=== PATIENT | male | born 1995 | race Caucasian/White ===

== ENCOUNTER 2018-03-18 13:08 | Emergency (ER) | payer SELFPAY ==
[~2018-03-18] VITALS: Ht 182.9 cm; Wt 72.6 kg
--- NOTE | 2018-03-18 13:55 | NUR ---
PT SLEEPING ON [facility], SIDERAILS UP.
[2018-03-18 14:18] LABS: BASOPHILS # (AUTO) 0.1 K/uL (0.0-8.0); BASOPHILS % (AUTO) 0.8 % (0.0-2.0); EOSINOPHILS # (AUTO) 0.1 K/uL (0.0-0.7); EOSINOPHILS % (AUTO) 0.7 % (0.0-7.0); HEMATOCRIT 47.3 % (36.7-47.1); HEMOGLOBIN 15.8 g/dL (12.5-16.3); LYMPHOCYTES # (AUTO) 1.8 K/uL (20.0-40.0); LYMPHOCYTES % (AUTO) 26.1 % (20.5-51.5); MEAN CORPUSCULAR HEMOGLOBIN 30.3 uug (23.8-33.4); MEAN CORPUSCULAR HGB CONC 33 g/dL (32.5-36.3); MEAN CORPUSCULAR VOLUME 90.7 fL (73.0-96.2); MONOCYTES # (AUTO) 0.4 K/uL (2.0-10.0); NEUTROPHILS # (AUTO) 4.7 K/uL (1.8-8.9); NEUTROPHILS % (AUTO) 66.4 % (38.5-71.5); PLATELET COUNT (AUTO) 126 K/uL (152-348); RED BLOOD CELL COUNT(AUTO) 5.21 MIL/uL (4.06-5.63)
[2018-03-18 14:28] LABS: BILIRUBIN,DIRECT 0.1 mg/dL (0.0-0.2); BILIRUBIN,TOTAL 0.2 mg/dL (0.2-1.0); CREATININE 0.8 mg/dL (0.6-1.3); POTASSIUM 4.1 mmol/L (3.5-5.1); TOTAL PROTEIN, SERUM 6.8 g/dL (6.4-8.2)
--- NOTE | 2018-03-18 15:23 | NUR ---
UNABLE TO AROSE PATIENT FOR URINE SAMPLE , TOMMY ROLDAN AWARE.
--- NOTE | 2018-03-18 16:58 | NUR ---
PT REFUSED TO STAY, ELOPED, AMBULATED W/O DIFF. AWARE.
== END 2018-03-18 17:01 | disposition left against medical advice (07) ==
LOC: ER 13:08
DX: F10.129 Alcohol abuse with intoxication, unspecified (principal)
CPT/HCPCS: 36415; 76770; 80048; 80076; 85025; 99285; A4663; G0480

== ENCOUNTER 2018-08-08 21:45 | Emergency (ER) | payer MEDICAID ==
[~2018-08-08] VITALS: Ht 185.4 cm; Wt 84.8 kg
--- NOTE | 2018-08-08 22:21 | NUR ---
PT A/OX4, PRESENTS TO THE ER C/O HTN. PT IS ESCORTED BY STAFF MEMBER FROM [facility]. PT IS HYPERTENSIVE W/ TACHYCARDIA, PRESENTS W/ BILATERAL HAND TREMORS. PT DENIES PAIN, C/P, SOB, N/V/D, DIZZINESS, HEADACHE.
--- NOTE | 2018-08-08 22:38 | NUR ---
HILARIA HIDALGO AT BEDSIDE FOR MSE.
[2018-08-08] MEDS ORDERED: CLONIDINE HCL 0.2 MG TABLET ONE (22:54)
--- NOTE | 2018-08-08 22:56 | NUR ---
WINDOW DISPLAY DESIGNER AT BEDSIDE.
[2018-08-08] MEDS ORDERED: CLONIDINE HCL 0.2 MG TABLET PO ONE (23:00)
[2018-08-08 23:02] LABS: BASOPHILS # (AUTO) 0.1 K/uL (0.0-8.0); BASOPHILS % (AUTO) 0.8 % (0.0-2.0); EOSINOPHILS % (AUTO) 0.5 % (0.0-7.0); HEMATOCRIT 48.6 % (36.7-47.1); HEMOGLOBIN 16.7 g/dL (12.5-16.3); LYMPHOCYTES # (AUTO) 2.3 K/uL (20.0-40.0); LYMPHOCYTES % (AUTO) 31.5 % (20.5-51.5); MEAN CORPUSCULAR HEMOGLOBIN 30.7 uug (23.8-33.4); MEAN CORPUSCULAR HGB CONC 34 g/dL (32.5-36.3); MEAN CORPUSCULAR VOLUME 89.2 fL (73.0-96.2); MONOCYTES # (AUTO) 0.5 K/uL (2.0-10.0); MONOCYTES % (AUTO) 6.6 % (0.0-11.0); NEUTROPHILS # (AUTO) 4.4 K/uL (1.8-8.9); NEUTROPHILS % (AUTO) 60.6 % (38.5-71.5); PLATELET COUNT (AUTO) 133 K/uL (152-348); RED BLOOD CELL COUNT(AUTO) 5.45 MIL/uL (4.06-5.63); WHITE BLOOD COUNT (AUTO) 7.3 K/uL (3.6-10.2)
[2018-08-08 23:29] LABS: CREATININE 0.9 mg/dL (0.6-1.3); POTASSIUM 4.2 mmol/L (3.5-5.1)
[2018-08-08 23:45] LABS: BILIRUBIN,DIRECT 0.1 mg/dL (0.0-0.2); BILIRUBIN,TOTAL 0.2 mg/dL (0.2-1.0); TOTAL PROTEIN, SERUM 8.2 g/dL (6.4-8.2)
--- NOTE | 2018-08-09 00:23 | NUR ---
Patient discharged to home in stable conditon. Written and verbal after care instructions given. Patient verbalizes understanding of instructions. PT D/C UNDER CARE OF [facility]S STAFF MEMBER. ALL BELONGINGS W/ PT. PT SELF-AMBULATED W/O DIFFICULTY.
[2018-08-09 00:24] VITALS: BP 135/65
== END 2018-08-09 00:25 | disposition home or self-care (01) ==
LOC: ER 21:45
DX: I10 Essential (primary) hypertension (principal); F19.90 Other psychoactive substance use, unspecified, uncomplicated
CPT/HCPCS: 36415; 70030-TC; 85025; 85730; 93005; A4663

== ENCOUNTER 2019-05-04 19:40 | Emergency (ER) | payer MEDICAID ==
[~2019-05-04] VITALS: Ht 188 cm; Wt 90.7 kg
--- NOTE | 2019-05-04 19:48 | NUR ---
DR DAVALOS AT BEDSIDE FOR MSE.
[2019-05-04] MEDS ORDERED: IV NORMAL SALINE 1000 ML BAG IV ONE (20:00)
[2019-05-04 20:07] LABS: BASOPHILS % (AUTO) 0.4 % (0.0-2.0); HEMOGLOBIN 16.9 g/dL (12.5-16.3); LYMPHOCYTES # (AUTO) 1.3 K/uL (20.0-40.0); LYMPHOCYTES % (AUTO) 19.6 % (20.5-51.5); MEAN CORPUSCULAR HEMOGLOBIN 29.7 uug (23.8-33.4); MEAN CORPUSCULAR HGB CONC 35 g/dL (32.5-36.3); MEAN CORPUSCULAR VOLUME 85.9 fL (73.0-96.2); MONOCYTES # (AUTO) 0.3 K/uL (2.0-10.0); MONOCYTES % (AUTO) 4.3 % (0.0-11.0); NEUTROPHILS % (AUTO) 75.7 % (38.5-71.5); PLATELET COUNT (AUTO) 119 K/uL (152-348); WHITE BLOOD COUNT (AUTO) 6.6 K/uL (3.6-10.2)
[2019-05-04 20:17] LABS: CARBON DIOXIDE 31 mmol/L (21-32); CHLORIDE 102 mmol/L (98-107); CREATININE 0.9 mg/dL (0.6-1.3); GLUCOSE 110 mg/dL (74-106); POTASSIUM 3.7 mmol/L (3.5-5.1); UREA NITROGEN, BLOOD 8 mg/dL (7-18)
[2019-05-04 20:22] LABS: ALANINE AMINOTRANSFERASE 24 U/L (16-63); ALKALINE PHOSPHATASE 58 U/L (50-136); ASPARTATE AMINOTRANSFERASE 25 U/L (15-37); BILIRUBIN,DIRECT 0.1 mg/dL (0.0-0.2); BILIRUBIN,TOTAL 0.4 mg/dL (0.2-1.0); TOTAL PROTEIN, SERUM 8.2 g/dL (6.4-8.2)
[2019-05-04 20:23] LABS: ACETAMINOPHEN < 2.0 ug/mL (10-30); ETHANOL 298 MG/DL (0-0)
--- NOTE | 2019-05-04 20:30 | NUR ---
CALL FROM HAND BULLDOZER, BHUMI, REGARDING PT. UPDATED STATUS. WILL CONTINUE TO MONITOR PT.
[2019-05-04 20:43] LABS: *BILIRUBIN,URIN NEGATIVE (NEGATIVE); *BLOOD, URINE NEGATIVE (NEGATIVE); *CLARITY,URINE CLEAR (CLEAR); *KETONES,URINE NEGATIVE (NEGATIVE); *UROBILINOGEN,URINE 0.2 E.U./dl (NORMAL); LEUKOCYTE ESTERASE ,URINE NEGATIVE (NEGATIVE); NITRITE, URINE NEGATIVE (NEGATIVE); UGLUCOSE NEGATIVE (NEGATIVE)
[2019-05-04 20:44] LABS: *COLOR,URINE LIGHT YELLOW (YELLOW)
[2019-05-04 20:46] LABS: THYROID STIMULATING HORMONE 1.189 mIU/mL (0.358-3.740)
[2019-05-04 20:56] LABS: *AMPHETAMINE, URINE NEGATIVE (NEGATIVE); *BARBITURATE, URINE NEGATIVE (NEGATIVE); *CANNABINOID, URINE NEGATIVE (NEGATIVE); *COCCAINE, URINE NEGATIVE (NEGATIVE); *OPIATE, URINE NEGATIVE (NEGATIVE); *PHENCYCLIDINE SCREEN,URINE NEGATIVE (NEGATIVE)
[2019-05-04 21:28] VITALS: BP 131/108
--- NOTE | 2019-05-04 21:31 | NUR ---
Pt restless at this time, AxO x4. Pt refuses to stay and states "I want to find my way home." Pt informed about contacting Simeon, boathouse keeper from [facility] regarding arrangement plans. Pt still wishes to leave. Exit care provided. Pt ambulated out of ER with steady gait.
== END 2019-05-04 21:58 | disposition home or self-care (01) ==
LOC: ER 19:41
DX: F10.129 Alcohol abuse with intoxication, unspecified (principal); Y90.8 Blood alcohol level of 240 mg/100 ml or more
CPT/HCPCS: 36415; 71045; 80048; 80076; 80307; 81001; 84443; 84484; 85025; 85730; 99284; G0480 ×2; G0481; 70030-TC; A4663